=== PATIENT | male | born 1975 | race Caucasian/White ===

== ENCOUNTER 2018-03-10 07:26 | Emergency (ER) | payer BC, SELFPAY ==
[2018-03-10 07:32] VITALS: PULSE 80; RESP 12; TEMP 36.8; O2SAT 100
--- NOTE | 2018-03-10 08:03 | W.ED.GENAD ---
Discharge Plan Disposition Patient Disposition: HOME Discharge Details Chief Complaint: Cellulitis Clinical Impression: Abscess of hand, right, Cellulitis of right hand Primary Care Provider: Huong Pal ED Provider: Geoff Cadena Home Meds and New Rx's Prescriptions: New sulfamethoxazole-trimethoprim [Bactrim DS] 800-160 mg tablet 1 tab PO BID Qty: 20 RF: 0 Continue dexmethylphenidate [Focalin XR] 35 MG capsule,ER biphasic 50-50 35 mg PO DAILY RF: 0 venlafaxine 150 MG capsule,extended release 24hr 300 mg PO DAILY RF: 0 buprenorphine-naloxone [Suboxone] 2-0.5 mg Film 1 film BUCCAL DAILY RF: 0 buprenorphine-naloxone [Suboxone] 8-2 mg Film 2 film BUCCAL DAILY RF: 0 Discharge Instructions Instructions: Cellulitis (ED), Abscess (ED) Additional Instructions: Please take your antibiotic as prescribed. Follow-up with your primary care physician in the next 2 days for reassessment. Please contact your primary care physician to arrange follow-up. Return to the ER for any worsening or new concerning symptoms. Return to the ER if you are not able to be seen by your primary care physician. Referrals: Huong Pal [Primary Care Provider] - Medical Decision Making 43-year-old male presents with abscess of his dorsal right hand, 5 days after fall sustaining puncture wound with wood splinter, splinter removed. Afebrile. Hand is swollen about infection. Exam is not consistent with compartment syndrome. xray of the rt hand performed and interpreted by me: no fb Incision and drainage performed after verbal consent. Abscess irrigated and explored for retained foriegn body, none identified. Wound culture sent. Patient has PCN allergy. He has had cellulitis in past that responded to bactrim. Will start bactrim. Advised close follow-up with PCP. Disposition decision was made weighing the risks and benefits of hospitalization versus outpatient treatment, the risk for further decompensation, and the patient's wishes. The patient was stable and requested discharge. Prior to discharge, my usual and customary return precautions were reviewed with the patient - this included follow-up instructions and reason to return to the emergency department if condition worsens, does not improve as expected, or other new concerns arise. HPI General Mode of arrival: ambulatory. Date/Time Provider Initiated Documentation: 03/10/18 07:54. Limitations to Documentation: no limitations. Information obtained by: patient. HPI Narrative: 43-year-old male presents with a chief complaint of right hand infection. Patient notes he slipped and fell and hit his right hand on a wood fence 5 days ago. He noticed that he had a splinter in the back of his hand. He believes he removed the entire intact splinter. Hand has been swollen. Swelling significantly worsened since last night. He has associated pain in the hand. He notes fluid-filled absence dorsal hand. He has been using ice which has not helped. No associated fevers. Patient denies IV drug use. Related Data Home Medications Medication Instructions Recorded Confirmed venlafaxine 300 mg PO DAILY 10/14/16 03/10/18 dexmethylphenidate [Focalin XR] 35 mg PO DAILY tab-cap 05/24/17 03/10/18 buprenorphine-naloxone [Suboxone] 1 film BUCCAL DAILY 03/10/18 03/10/18 buprenorphine-naloxone [Suboxone] 2 film BUCCAL DAILY 03/10/18 03/10/18 sulfamethoxazole-trimethoprim 1 tab PO BID #20 tab 03/10/18 [Bactrim DS] Previous Rx's Medication Instructions Recorded sulfamethoxazole-trimethoprim 1 tab PO BID #20 tab 03/10/18 [Bactrim DS] Allergies Allergy/AdvReac Type Severity Reaction Status Date / Time Penicillins Allergy Unverified 03/10/18 07:34 ibuprofen AdvReac Intermediate STOMACH Unverified 03/10/18 07:34 IRRITATION General Stated Complaint: Cellulitis LEW: 3 Review of Systems Constitutional Denies chills, Denies fever(s) and Denies weakness Musculoskeletal Denies numbness Integumentary/Breasts Reports as per HPI Neurologic Denies numbness and Denies weakness [facility] Social History Smoking/Tobacco Use Status: Current every day Surgical History cellulitis, foot, right history of drug abuse in remission pedal edema sebaceous cyst tobacco dependence Exam Const General: cooperative and no acute distress HENMT Head: normocephalic and atraumatic Mouth: moist mucous membranes Eyes Conjunctivae: normal conjunctivae Sclera: normal sclerae Resp Auscultation: clear to auscultation bilaterally, no rales, no rhonchi and no wheezes Cardio Jugular venous pressure: no JVD Rate: regular rate and not tachycardic Rhythm: regular rhythm Pulses: radial pulses present on the right Skin General skin exam: no rashes or lesions noted Lesions: lesion noted (3 cm abscess with significant fluctuance dorsal right hand, surrounding erythema and swelling of the dorsal hand) Neuro General: alert, awake, oriented x3 and tone normal Extrem General: no edema and other (Right hand swollen with abscess as noted above, able to flex and extend all digits and wrist without significant discomfort, distal sensation and motor intact) Psych Appearance: grossly normal Mental Status: mental status grossly normal Speech and Movement: speech and movement normal Course Vital Signs Temperature 36.8 C 03/10/18 07:32 Pulse 80 03/10/18 07:32 Respiratory Rate 12 03/10/18 07:32 Pulse Oximetry 100 03/10/18 07:32 Temperature 36.8 C 03/10/18 07:32 Temperature Source Temporal Artery Scan 03/10/18 07:32 Pulse 80 03/10/18 07:32 Respiratory Rate 12 03/10/18 07:32 Respiratory Effort Non-Labored 03/10/18 07:33 Blood Pressure Position Sitting 03/10/18 07:32 Pulse Oximetry 100 03/10/18 07:32 Oxygen Delivery Method Room Air 03/10/18 07:32 Oxygen Flow Rate 0 03/10/18 07:32 Pain Level 7 03/10/18 07:32 Procedures Abscess I/D Site: Hand Side (if applicable): Right Local Anesthetic: Other Anesthetic (LET) Technique: Incised with #11 Blade Amount of fluid expressed (mL): 15 Irrigation: Yes Packing used?: None Complications: Other (none)
[2018-03-10] MEDS: Sulfameth/Trimeth DS TAB 1 TAB PO (08:06)
--- NOTE | 2018-03-10 08:12 | ED.GENADUL_ITS ---
Discharge Plan Disposition Patient Disposition: HOME Discharge Details Chief Complaint: Cellulitis Clinical Impression: Abscess of hand, right, Cellulitis of right hand Primary Care Provider: Huong Pal ED Provider: Geoff Cadena Home Meds and New Rx's Prescriptions: New sulfamethoxazole-trimethoprim [Bactrim DS] 800-160 mg tablet 1 tab PO BID Qty: 20 RF: 0 Continue dexmethylphenidate [Focalin XR] 35 MG capsule,ER biphasic 50-50 35 mg PO DAILY RF: 0 venlafaxine 150 MG capsule,extended release 24hr 300 mg PO DAILY RF: 0 buprenorphine-naloxone [Suboxone] 2-0.5 mg Film 1 film BUCCAL DAILY RF: 0 buprenorphine-naloxone [Suboxone] 8-2 mg Film 2 film BUCCAL DAILY RF: 0 Discharge Instructions Instructions: Cellulitis (ED), Abscess (ED) Additional Instructions: Please take your antibiotic as prescribed. Follow-up with your primary care physician in the next 2 days for reassessment. Please contact your primary care physician to arrange follow-up. Return to the ER for any worsening or new concerning symptoms. Return to the ER if you are not able to be seen by your primary care physician. Referrals: Huong Pal [Primary Care Provider] - Medical Decision Making 43-year-old male presents with abscess of his dorsal right hand, 5 days after fall sustaining puncture wound with wood splinter, splinter removed. Afebrile. Hand is swollen about infection. Exam is not consistent with compartment syndrome. xray of the rt hand performed and interpreted by me: no fb Incision and drainage performed after verbal consent. Abscess irrigated and explored for retained foriegn body, none identified. Wound culture sent. Patient has PCN allergy. He has had cellulitis in past that responded to bactrim. Will start bactrim. Advised close follow-up with PCP. Disposition decision was made weighing the risks and benefits of hospitalization versus outpatient treatment, the risk for further decompensation , and the patient's wishes. The patient was stable and requested discharge. Prior to discharge, my usual and customary return precautions were reviewed with the patient - this included follow-up instructions and reason to return to the emergency department if condition worsens, does not improve as expected, or other new concerns arise. HPI General Mode of arrival: ambulatory . Date/Time Provider Initiated Documentation: 03/10/18 07:54 . Limitations to Documentation: no limitations . Information obtained by: patient . HPI Narrative: 43-year-old male presents with a chief complaint of right hand infection. Patient notes he slipped and fell and hit his right hand on a wood fence 5 days ago. He noticed that he had a splinter in the back of his hand. He believes he removed the entire intact splinter. Hand has been swollen. Swelling significantly worsened since last night. He has associated pain in the hand. He notes fluid-filled absence dorsal hand. He has been using ice which has not helped. No associated fevers. Patient denies IV drug use. Related Data Home Medications Medication Instructions Recorded Confirmed venlafaxine 300 mg PO DAILY 10/14/16 03/10/18 dexmethylphenidate [Focalin XR] 35 mg PO DAILY tab-cap 05/24/17 03/10/18 buprenorphine-naloxone [Suboxone] 1 film BUCCAL DAILY 03/10/18 03/10/18 buprenorphine-naloxone [Suboxone] 2 film BUCCAL DAILY 03/10/18 03/10/18 sulfamethoxazole-trimethoprim 1 tab PO BID #20 tab 03/10/18 [Bactrim DS] Previous Rx's Medication Instructions Recorded sulfamethoxazole-trimethoprim 1 tab PO BID #20 tab 03/10/18 [Bactrim DS] Allergies Allergy/AdvReac Type Severity Reaction Status Date / Time Penicillins Allergy Unverified 03/10/18 07:34 ibuprofen AdvReac Intermediate STOMACH Unverified 03/10/18 07:34 IRRITATION General Stated Complaint: Cellulitis LEW: 3 Review of Systems Constitutional Denies chills, Denies fever(s) and Denies weakness Musculoskeletal Denies numbness Integumentary/Breasts Reports as per HPI Neurologic Denies numbness and Denies weakness [facility] Social History Smoking/Tobacco Use Status: Current every day Surgical History cellulitis, foot, right history of drug abuse in remission pedal edema sebaceous cyst tobacco dependence Exam Const General: cooperative and no acute distress HENMT Head: normocephalic and atraumatic Mouth: moist mucous membranes Eyes Conjunctivae: normal conjunctivae Sclera: normal sclerae Resp Auscultation: clear to auscultation bilaterally, no rales, no rhonchi and no wheezes Cardio Jugular venous pressure: no JVD Rate: regular rate and not tachycardic Rhythm: regular rhythm Pulses: radial pulses present on the right Skin General skin exam: no rashes or lesions noted Lesions: lesion noted (3 cm abscess with significant fluctuance dorsal right hand, surrounding erythema and swelling of the dorsal hand) Neuro General: alert, awake, oriented x3 and tone normal Extrem General: no edema and other (Right hand swollen with abscess as noted above, able to flex and extend all digits and wrist without significant discomfort, distal sensation and motor intact) Psych Appearance: grossly normal Mental Status: mental status grossly normal Speech and Movement: speech and movement normal Course Vital Signs Temperature 36.8 C 03/10/18 07:32 Pulse 80 03/10/18 07:32 Respiratory Rate 12 03/10/18 07:32 Pulse Oximetry 100 03/10/18 07:32 Temperature 36.8 C 03/10/18 07:32 Temperature Source Temporal Artery Scan 03/10/18 07:32 Pulse 80 03/10/18 07:32 Respiratory Rate 12 03/10/18 07:32 Respiratory Effort Non-Labored 03/10/18 07:33 Blood Pressure Position Sitting 03/10/18 07:32 Pulse Oximetry 100 03/10/18 07:32 Oxygen Delivery Method Room Air 03/10/18 07:32 Oxygen Flow Rate 0 03/10/18 07:32 Pain Level 7 03/10/18 07:32 Procedures Abscess I/D Site: Hand Side (if applicable): Right Local Anesthetic: Other Anesthetic (LET) Technique: Incised with #11 Blade Amount of fluid expressed (mL): 15 Irrigation: Yes Packing used?: None Complications: Other (none)
--- NOTE | 2018-03-10 08:12 | DI.RAD_ITS ---
SYMPTOM/DIAGNOSIS: INFECTION, ABSCESS, ? FOREIGN BODY RIGHT HAND: Three views were obtained. There is an apparent old fracture of the fifth metacarpal, please correlate clinically. There is marked soft tissue swelling of the dorsum of the hand, particularly on its ulnar aspect. No gross foreign body identified.
[2018-03-10] MEDS: Lidocaine/Epinephri/Tetracaine Topical Gel 3 ML TP (09:07)
[2018-03-10 09:57] VITALS: BP 138/76; PULSE 78; RESP 18; TEMP 36.7; O2SAT 97
== END 2018-03-10 10:11 | disposition home or self-care (01) ==
PROVIDERS: Emergency Provider Student in an Organized Health Care Education/Training Program; PCP Nurse Practitioner Family
DX: L02.413 Cutaneous abscess of right upper limb (principal); L03.113 Cellulitis of right upper limb; B95.62 Methicillin resistant Staphylococcus aureus infection as the cause of diseases classified elsewhere; B95.4 Other streptococcus as the cause of diseases classified elsewhere; W00.0XXA Fall on same level due to ice and snow, initial encounter; W45.8XXA Other foreign body or object entering through skin, initial encounter
CPT/HCPCS: 10060; 87077; 99283; 73130; 87070; 87186; 99281

== ENCOUNTER 2018-08-20 14:41 | Emergency (ER) | payer OTHER, SELFPAY ==
[2018-08-20 14:44] VITALS: BP 138/77; PULSE 99; RESP 18; TEMP 36.4; O2SAT 96
--- NOTE | 2018-08-20 15:33 | ED.GENADUL_ITS ---
Discharge Plan Disposition Patient Disposition: HOME Condition: Improving Discharge Details Chief Complaint: Cellulitis Clinical Impression: Abscess Primary Care Provider: Huong Pal ED Provider: Juan Carlos Ward Home Meds and New Rx's Prescriptions: New sulfamethoxazole-trimethoprim [Bactrim DS] 800-160 mg tablet 1 tab PO DAILY Qty: 20 RF: 0 Continued dexmethylphenidate [Focalin XR] 35 MG capsule,ER biphasic 50-50 40 mg PO DAILY RF: 0 buprenorphine-naloxone [Suboxone] 2-0.5 mg Film 1 film BUCCAL DAILY RF: 0 buprenorphine-naloxone [Suboxone] 8-2 mg Film 2 film BUCCAL DAILY RF: 0 bupropion HCl [Wellbutrin XL] 300 mg Tablet Extended Release 24 Hr 300 mg PO DAILY RF: 0 Discharge Instructions Additional Instructions: Please take your medication as recommended please return to the emergency department immediately for fever chills increasing pain and swelling or other concern follow-up with your primary doctor or the emergency department in 2 to 3 days for a wound check Discharge Data Discharge Date/Time-TO BE ENTERED AT DEPARTURE: 08/20/18 15:43 Medical Decision Making 43-year-old male right hand superficial abscess I&D at the bedside moderate purulent discharge expressed wound not packed will start the patient on Bactrim & wound check in 2 to 3 days with PCP or the emergency department. Procedure note abscess incision and drainage wound cleaned with chlorhexidine and anesthetized with 2 cc 1% lidocaine with good anesthesia incised with #11 blade approximately 0.5 cm approximately 2 cc purulent material expressed patient tolerated well. HPI 43-year-old male with pain and swelling and redness on his right hand over his volar thenar eminence. Swelling first noted a.m. today progressed had some small redness yesterday no fever no chills history of abscesses a few times in the past past medical history of IVDU on Suboxone denies any IVDU .no shortness of breath chest pain nausea vomiting diarrhea fever chills weight loss weight gain or other concern General Date/Time Provider Initiated Documentation: 08/20/18 14:43 . Related Data Home Medications Medication Instructions Recorded Confirmed dexmethylphenidate [Focalin XR] 40 mg PO DAILY tab-cap 05/24/17 08/20/18 buprenorphine-naloxone [Suboxone] 1 film BUCCAL DAILY 03/10/18 08/20/18 buprenorphine-naloxone [Suboxone] 2 film BUCCAL DAILY 03/10/18 08/20/18 bupropion HCl [Wellbutrin XL] 300 mg PO DAILY 08/20/18 08/20/18 sulfamethoxazole-trimethoprim 1 tab PO DAILY #20 tab 08/20/18 [Bactrim DS] Previous Rx's Medication Instructions Recorded sulfamethoxazole-trimethoprim 1 tab PO DAILY #20 tab 08/20/18 [Bactrim DS] Allergies Allergy/AdvReac Type Severity Reaction Status Date / Time Penicillins Allergy Unverified 03/10/18 07:34 ibuprofen AdvReac Intermediate STOMACH Unverified 03/10/18 07:34 IRRITATION General Stated Complaint: Cellulitis LEW: 4 Review of Systems Review of Systems All systems reviewed & are unremarkable except as noted in HPI and below PFSH Social History Smoking/Tobacco Use Status: Current every day Tobacco Type: cigarettes Smoking cigarettes per day: 5 Alcohol Intake: never Drug use: Never Do you feel safe at home: Yes Do you feel safe in your relationship?: Yes Exam Narrative Exam Narrative: Pulse oximetry reviewed by me and is normal [] Constitutional: Pt is in no acute distress. he is well appearing. he oriented to person, place, and time. Eyes: conjunctivae are normal. Pupils are equal, round, and reactive to light. No scleral icterus. extraocular muscles are intact Ears/Nose/Mouth/Throat: mucus membranes are moist. Musculoskeletal: neck is supple. normal range of motion in all extremities. Cardiovascular: Normal rate and rhythm. No lower extremity edema [] Respiratory: effort is normal . pt exhibits no stridor or respiratory distress. [] GastrointestinaI: abdomen soft, +BS, nontender, -rebound, -guarding. Neurological: alert and oriented to person, place, and time. he has normal str ength, no tremor. Skin: Skin is warm and dry. he is not diaphoretic. Distal perfusion in tact, warm extremities, cap refill ? 2 seconds. 3 cm diameter area of fluctuance and it with erythema no crepitus no induration noted change in range of motion of her right thenar or right wrist no evidence of joint involved Hem/Lymph/Imm: No cervical LAD, no goiter, no conjunctival pallor Psych: normal mood and affect. behavior is normal Triage and nurse notes reviewed.[] Course Vital Signs Temperature 36.4 C L 08/20/18 14:44 Pulse 99 H 08/20/18 14:44 Respiratory Rate 18 08/20/18 14:44 Blood Pressure 138/77 08/20/18 14:44 Pulse Oximetry 96 08/20/18 14:44 Temperature 36.4 C L 08/20/18 14:44 Temperature Source Temporal Artery Scan 08/20/18 14:44 Pulse 99 H 08/20/18 14:44 Respiratory Rate 18 08/20/18 14:44 Respiratory Effort 08/20/18 14:44 Blood Pressure 138/77 08/20/18 14:44 Blood Pressure Position Sitting 08/20/18 14:44 Pulse Oximetry 96 08/20/18 14:44 Oxygen Delivery Method Room Air 08/20/18 14:44 Oxygen Flow Rate 0 08/20/18 14:44
[2018-08-20] MEDS: Sulfameth/Trimeth DS TAB 1 TAB PO (15:41)
== END 2018-08-20 15:43 | disposition home or self-care (01) ==
PROVIDERS: Emergency Provider Emergency Medicine; PCP Nurse Practitioner Family
DX: L02.413 Cutaneous abscess of right upper limb (principal); F11.11 Opioid abuse, in remission
CPT/HCPCS: 10060

== ENCOUNTER 2019-01-31 16:15 | Emergency (ER) | payer OTHER, SELFPAY ==
[2019-01-31 16:18] VITALS: BP 147/71; PULSE 99; RESP 16; TEMP 36.8; O2SAT 97
--- NOTE | 2019-01-31 16:48 | W.ED.GENAD ---
Discharge Plan Disposition Patient Disposition: HOME Condition: Fair Discharge Details Chief Complaint: Nk/Back Pain Clinical Impression: Muscle spasm, Back pain Primary Care Provider: Huong Pal ED Provider: Wendy Garcia Home Meds and New Rx's Prescriptions: New celecoxib [Celebrex] 200 mg capsule 200 mg PO BID PRN (Reason: pain) Qty: 20 RF: 0 cyclobenzaprine 10 mg tablet 10 mg PO TID PRN (Reason: muscle spasm) Qty: 10 RF: 0 Continued dexmethylphenidate [Focalin XR] 35 MG capsule,ER biphasic 50-50 40 mg PO DAILY RF: 0 buprenorphine-naloxone 12-3 mg Film 1 film BUCCAL DAILY RF: 0 buprenorphine-naloxone [Suboxone] 8-2 mg Film 1 film BUCCAL DAILY RF: 0 bupropion HCl [Wellbutrin XL] 300 mg Tablet Extended Release 24 Hr 300 mg PO DAILY RF: 0 Discharge Instructions Instructions: Cyclobenzaprine (By mouth), Celecoxib (By mouth), Muscle Spasm (ED), Back Pain (ED) Additional Instructions: Continue to encourage hydration. Frequent ambulation and gentle stretching as discussed. Please take Tylenol thousand milligrams every 6 hours as needed for pain. You may use the Celebrex as prescribed twice daily, this is similar to ibuprofen but hopefully will not upset her stomach as much. Please use the Flexeril as prescribed to help with muscle spasm. Do not take this while driving. Take only as prescribed. This may make you fatigued. May try patches such as Salonpas or Lidoderm patches, these are available over the counter. If you develop fever/chills, increased pain, weakness, sensation changes or other new/worsening symptoms please seek care urgently once again. Physical therapy referral is attached. Please follow-up with primary care next week for reevaluation. Stand Alone Forms: Physical Therapy Referral Referrals: Huong Pal [Primary Care Provider] - Discharge Data Discharge Date/Time-TO BE ENTERED AT DEPARTURE: 01/31/19 19:25 Medical Decision Making Patient is a 44-year-old male presents with chief complaint of right-sided back pain that began 4 days ago. He reports that he has chronic back pain but associates this with heavy lifting at work. However, the recent days has greatly been exacerbated. He reports that he woke with his discomfort in the morning. No trauma medic incident. Patient chills. No recent travel. States that often he has sciatica, which can on the left side but has not been having any pain radiating to the limb with the symptoms thus far in his acute course. States he has been very stiff and has been having difficulty with range of motion. Has been wanting to remain in 1 sedentary position. Has not taken anything as of yet for his discomfort patient is on Suboxone and has been hesitant to take other medications with this. None exam, patient appears. He is moving with appears very stiff. He does have some curvature to his spine. Patient does not know of any history of scoliosis. He has notable muscle spasm running down the lower aspect of the thoracic and lumbar spine on the right side of the spine. Please see physical exam findings. This seems to be area of maximal tenderness. No rash, redness, area of fluctuance. No findings to suggest infection. He has good range of motion of his lower extremities. Patient has a good rotational movements but pain is greatly exacerbated with forward flexion. He did not see any evidence to suggest infection, traumatic injury, nerve compression or other emergent issue. Strength is equal bilateral lower extremities, reflexes are equal bilaterally, no saddle paresthesias or findings to suggest cauda equina. Pain does not seem to be midline at all, more to the right side along paraspinal and lateral to this associated with muscle spasm. Plan to treat with Flexeril, Tylenol, ibuprofen and Lidoderm patch. Discussed this plan with the patient who is in agreement Patient reports he is unable to take ibuprofen secondary to GI upset. Discussed the use of Celebrex which he is open to trying. No previous allergic reaction to the ibuprofen. Patient was given Flexeril, Lidoderm patch, Celebrex and Tylenol. He reports he is moving much better and feels much of the pain does persist. Feels at this point that he is able to be discharged home. Encourage close follow-up with primary care. Will refer to physical therapy. He was given return precautions. We will continue with the Celebrex and Flexeril. HPI General Mode of arrival: ambulatory. Date/Time Provider Initiated Documentation: 01/31/19 16:23. Limitations to Documentation: no limitations. Information obtained by: patient and RN notes reviewed. History of Present Illness 44 year old M presents to the emergency department with the chief complaint of right sided lower back pain, described as severe and similar to prior episodes, with intensity rated at 10. Quality is described as sharp, and is localized to the back. Patient reports radiation to back (radiates across back with any movmenets). Patient started experiencing this day(s) (4) and it has been constant. Immobilization improves symptom(s), Movement worsens symptoms . Patient notes no other symptoms.; denies chest pain, cough, diaphoresis, fever/chills, loss of appetite, nausea/vomiting, rash, shortness of breath and weakness. Patient did receive the following treatments prior to arrival, none Related Data Home Medications Medication Instructions Recorded Confirmed dexmethylphenidate [Focalin XR] 40 mg PO DAILY tab-cap 05/24/17 01/31/19 buprenorphine-naloxone [Suboxone] 1 film BUCCAL DAILY 03/10/18 08/20/18 bupropion HCl [Wellbutrin XL] 300 mg PO DAILY 08/20/18 01/31/19 buprenorphine-naloxone 1 film BUCCAL DAILY 01/31/19 01/31/19 celecoxib [Celebrex] 200 mg PO BID PRN #20 cap 01/31/19 cyclobenzaprine 10 mg PO TID PRN #10 tab 01/31/19 Previous Rx's Medication Instructions Recorded celecoxib [Celebrex] 200 mg PO BID PRN #20 cap 01/31/19 cyclobenzaprine 10 mg PO TID PRN #10 tab 01/31/19 Allergies Allergy/AdvReac Type Severity Reaction Status Date / Time Penicillins Allergy Unverified 01/31/19 16:24 ibuprofen AdvReac Intermediate STOMACH Unverified 01/31/19 16:24 IRRITATION General Stated Complaint: Nk/Back Pain LEW: 3 Review of Systems Constitutional Constitutional: Reports as per HPI, Denies chills, Denies fatigue, Denies fever(s), Denies frequent falls and Denies headache(s) Eyes Eyes: Denies change in vision ENT Ears, Nose, Mouth, and Throat: Denies headache(s) Cardiovascular Cardiovascular: Denies chest pain, Denies dyspnea and Denies dyspnea on exertion Respiratory Respiratory: Denies cough, Denies dyspnea and Denies dyspnea on exertion Gastrointestinal Gastrointestinal: Denies abdominal pain, Denies change in bowel habits and Denies fecal incontinence Genitourinary Genitourinary: Reports as per HPI, Denies urinary hesitancy and Denies urinary incontinence Musculoskeletal Musculoskeletal: Reports as per HPI, Reports back pain, Denies muscle weakness, Denies numbness, Denies radiating pain into limb, Reports stiffness and Denies tingling Integumentary/Breasts Skin/Breast: Reports as per HPI and Denies rash Neurologic Neurologic: Reports as per HPI, Denies frequent falls, Denies headache(s), Denies focal weakness, Denies numbness, Denies radicular pain, Denies sensory deficit, Denies tingling and Denies paresthesias Endocrine Endocrine: Denies fatigue [facility] Surgical History cellulitis, foot, right history of drug abuse in remission pedal edema sebaceous cyst tobacco dependence Social History Smoking/Tobacco Use Status: Current every day Tobacco Type: cigarettes Alcohol Intake: never Drug use: Daily Substance use type: marijuana Do you feel safe at home: Yes Do you feel safe in your relationship?: Yes Exam Const General: cooperative, healthy appearing, comfortable, no acute distress, well developed and well groomed Nutritional Appearance: average body habitus and well nourished Orientation: alert and awake Eyes General: appearance normal, both eyes and all related structures Neck Neck: normal visual inspection, full ROM, no lymphadenopathy and no meningeal signs Resp Effort & Inspection: normal respiratory effort and able to speak in complete sentences Auscultation: clear to auscultation bilaterally, no rales, no rhonchi and no wheezes Cardio Rate: regular rate Rhythm: regular rhythm Heart Sounds: S1 normal and S2 normal Back/Spine/Pelvis Back: no CVA tenderness Cervical Spine: normal cervical lordosis and cervical ROM normal Thoracic/Lumbar Spine: No thoracic and lumbar spine normal to inspection (patient has S curve consistent with scoliosis), No thoraco-lumbar ROM normal (very limited forward flexion. Slight limitation of rotational movements), No mass and No thoracic spinal tenderness Skin General skin exam: no rashes or lesions noted Neuro General: alert and awake Cognition: normal cognition Speech: speech normal Gait: normal gait Motor: muscle tone normal throughout, strength 5/5 throughout, no movement abnormalities noted and no fasciculations Sensory Exam: no sensory deficits noted (no saddle paresthesias) DTR's: Rt Patellar: 2+, Lt Patellar: 2+, Rt Ankle: 2+ and Lt Ankle: 2+ Extrem General: normal to inspection, full ROM, normal capillary refill, no joint enlargement, no pedal edema, no calf tenderness and normal gait Psych Appearance: grossly normal and well kempt Mental Status: mental status grossly normal Speech and Movement: speech and movement normal Course Vital Signs Vital signs: Vital Signs Temperature 36.8 C 01/31/19 16:18 Pulse 99 H 01/31/19 16:18 Respiratory Rate 16 01/31/19 16:18 Blood Pressure 147/71 H 01/31/19 16:18 Pulse Oximetry 97 01/31/19 16:18 Temperature 36.8 C 01/31/19 16:18 Pulse 99 H 01/31/19 16:18 Respiratory Rate 16 01/31/19 16:18 Respiratory Effort Non-Labored 01/31/19 16:24 Blood Pressure 147/71 H 01/31/19 16:18 Blood Pressure Position Sitting 01/31/19 16:18 Pulse Oximetry 97 01/31/19 16:18 Oxygen Delivery Method Room Air 01/31/19 16:18 Oxygen Flow Rate 0 01/31/19 16:18 Pain Level 10 01/31/19 16:18
[2019-01-31] MEDS: Cyclobenzaprine 10 MG TAB PO (18:01)
[2019-01-31] MEDS: Acetaminophen 500 MG TAB 1000 MG PO (18:01)
[2019-01-31] MEDS: Celecoxib 200 MG CAP 400 MG PO (18:02)
[2019-01-31] MEDS: Lidocaine 5% Patch 1 PATCH TP (18:02)
[2019-01-31 19:17] VITALS: BP 147/71; PULSE 99; RESP 16; TEMP 36.8; O2SAT 97
[2019-01-31] MEDS: Cyclobenzaprine 10 MG TAB 20 MG PO (19:17)
[2019-01-31] MEDS: Celecoxib 200 MG CAP PO (19:17)
== END 2019-01-31 19:25 | disposition home or self-care (01) ==
PROVIDERS: Emergency Provider Physician Assistant; PCP Nurse Practitioner Family
DX: M62.830 Muscle spasm of back (principal); M54.9 Dorsalgia, unspecified; G89.29 Other chronic pain
CPT/HCPCS: 99283

== ENCOUNTER 2022-06-26 09:55 | Outpatient (CLI) | payer MEDICAID, SELFPAY ==
--- NOTE | 2022-06-26 09:45 | RT.EKG_ITS ---
APPROVED REPORT Exam: Resting ECG Reason for Exam: HIGH RISK MEDICATION Patient Location: O HR:41 bpm ECG Measurements Heart Rate 41 AXIS OH 156 P 67 QRSd 104 QRS -11 QT 506 T 56 QTc 418 Conclusion Sinus bradycardia...rate< 50 Probable left atrial enlargement...P >50mS, <-0.10mV V1 Poor R wave progression
== END 2022-06-26 09:56 | disposition home or self-care (01) ==
PROVIDERS: PCP Nurse Practitioner Family; Visit Provider Family Medicine
DX: R00.1 Bradycardia, unspecified (principal); Z79.899 Other long term (current) drug therapy
CPT/HCPCS: 93005; 93010

== ENCOUNTER 2022-08-25 14:38 | Outpatient (REF) | payer MEDICAID, SELFPAY ==
[2022-08-25 15:25] LABS: Abs Immature Grans 0.01 10^3/uL (0.0-0.06); Absolute Basophil Count 0.04 10^3/uL (0.0-0.2); Absolute Eosinophil Count 0.19 10^3/uL (0.0-0.7); Absolute Lymphocyte Count 2.98 10^3/uL (1.2-3.4); Absolute Monocyte Count 0.45 10^3/uL (0.1-0.8); Absolute Neutrophil Count 1.95 10^3/uL (1.2-6.7); Basophils % 0.7; Eosinophils % 3.4; HCT 44.4 % (40.0-50.0); HGB 14.6 g/dL (13.5-17.5); Immature Grans % 0.2; MCH 31.3 pg (27.0-33.0); MCHC 32.9 % (32.0-36.0); MCV 95 fL (80-95); MPV 10.1 fL (8.0-11.0); Neutrophils % 34.7; Platelet Count 201 10^3/uL (130-400); RBC 4.67 10^6/uL (4.36-5.78); RDW 13.7 % (11.8-14.1); WBC 5.62 10^3/uL (4.4-10.8)
[2022-08-25 16:21] LABS: ALT 128 U/L (16-63); AST 89 U/L (15-37); Albumin 3.7 g/dL (3.4-5.0); Alkaline Phosphatase 97 U/L (46-116); Anion Gap 10.2 mmol/L (3-11); BUN 18 mg/dL (7-18); Bilirubin, Total 0.3 mg/dL (0.2-1.0); CO2 27.8 mmol/L (21.0-32.0); Calcium 8.9 mg/dL (8.5-10.1); Chloride 101 mmol/L (98-107); Estimated GFR 92.26 (mL/min/1.73m2); Glucose 89 mg/dL (74-106); Potassium 4.8 mmol/L (3.5-5.1); Sodium 139 mmol/L (136-145); Total Protein 8.1 g/dL (6.4-8.2)
[2022-08-26 10:58] LABS: Syphilis Serology (RPR) Negative (Negative)
== END 2022-08-25 14:39 | disposition home or self-care (01) ==
LOC: LBN 14:38
PROVIDERS: PCP Nurse Practitioner Family; Visit Provider Nurse Practitioner Family
DX: F11.20 Opioid dependence, uncomplicated (principal); Z79.899 Other long term (current) drug therapy
CPT/HCPCS: 80053; 85025; 86592

== ENCOUNTER 2023-10-17 20:57 | Emergency (ER) | payer MEDICAID, SELFPAY ==
[2023-10-17] VITALS (22 sets, daily range): BP systolic 125–148; BP diastolic 63–85; PULSE 60–90; RESP 13–23; TEMP 37; O2SAT 94–98
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
[2023-10-17] MEDS: Omnipaque 350 MG/ML 100 ML BTL IJ (21:25)
[2023-10-17] MEDS: Normal Saline - Diluent 50 ML VIAL IJ (21:26)
[2023-10-17] MEDS: Normal Saline Flush 10 ML SYR IVP (21:27)
[2023-10-17] MEDS: Ondansetron 4 MG/2 ML VIAL IVP (21:29)
[2023-10-17] MEDS: ACETAMINOPHEN 1,000 MG/100 ML BTL 400 MG IVPB (21:32)
[2023-10-17 21:35] LABS: Abs Immature Grans 0.01 10^3/uL (0.0-0.06); Absolute Basophil Count 0.01 10^3/uL (0.0-0.2); Absolute Eosinophil Count 0.02 10^3/uL (0.0-0.7); Absolute Lymphocyte Count 1.81 10^3/uL (1.2-3.4); Absolute Monocyte Count 0.47 10^3/uL (0.1-0.8); Absolute Neutrophil Count 3.15 10^3/uL (1.2-6.7); Basophils % 0.2 %; Eosinophils % 0.4 %; HCT 38.6 % (40.0-50.0); HGB 13.1 g/dL (13.5-17.5); Immature Grans % 0.2 %; Lymphocytes % 33.1 %; MCH 32.1 pg (27.0-33.0); MCHC 33.9 % (32.0-36.0); MCV 95 fL (80-95); MPV 9.3 fL (8.0-11.0); Monocytes % 8.6 %; Neutrophils % 57.5 %; RBC 4.08 10^6/uL (4.36-5.78); RDW 13.2 % (11.8-14.1); WBC 5.47 10^3/uL (4.4-10.8)
[2023-10-17 21:38] LABS: Platelet Count 160 10^3/uL (130-400)
[2023-10-17 21:54] LABS: ALT 165 U/L (16-63); AST 121 U/L (15-37); Albumin 3.6 g/dL (3.4-5.0); Alkaline Phosphatase 84 U/L (46-116); Anion Gap 11.4 mmol/L (3-11); BUN 10 mg/dL (7-18); Bilirubin, Total 0.59 mg/dL (0.2-1.0); CO2 26.6 mmol/L (21.0-32.0); Calcium 8.6 mg/dL (8.5-10.1); Chloride 99 mmol/L (98-107); Estimated GFR 91.69 (mL/min/1.73m2); Glucose 92 mg/dL (74-106); Potassium 3.4 mmol/L (3.5-5.1); Sodium 137 mmol/L (136-145); Total Protein 7.8 g/dL (6.4-8.2)
[2023-10-17 21:54] LABS: PTT Activated 21.4 sec (23.6-32.8); Prothrombin Time 10.4 sec (9.1-11.1)
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
[2023-10-18 05:36] VITALS: BP 145/81; PULSE 67; RESP 20; TEMP 36.8; O2SAT 98
== END 2023-10-18 05:36 | disposition home or self-care (01) ==
PROVIDERS: Emergency Provider Emergency Medicine; PCP Nurse Practitioner Family
DX: S02.2XXA Fracture of nasal bones, initial encounter for closed fracture (principal); S01.511A Laceration without foreign body of lip, initial encounter; S01.112A Laceration without foreign body of left eyelid and periocular area, initial encounter; S02.5XXA Fracture of tooth (traumatic), initial encounter for closed fracture; F17.210 Nicotine dependence, cigarettes, uncomplicated; V13.4XXA Pedal cycle driver injured in collision with car, pick-up truck or van in traffic accident, initial encounter; Y93.55 Activity, bike riding; Y92.414 Local residential or business street as the place of occurrence of the external cause
CPT/HCPCS: 12013; 74177; 80053; 86850; 86900; 86901; 96374; 96375; 99285; 70450; 70486; 71260; 72125; 85025; 85610; 85730; 99284; J0131; J2405; J3490